=== PATIENT | male | born 1990 | race Caucasian/White ===

== ENCOUNTER 2019-10-03 19:20 | Emergency (ER) | payer OTHER ==
[~2019-10-03] VITALS: Ht 172.7 cm; Wt 86.4 kg
[2019-10-03] MEDS ORDERED: TraMADol HCL 50 MG TABLET PO ONE (20:00)
[2019-10-03] MEDS ORDERED: CefTRIAXone SODIUM 1 GM/VIAL IM ONE (20:00)
[2019-10-03] MEDS ORDERED: SULFAMETHOX/TRIMETH DS 800-160 MG/TABLET PO ONE (20:00)
[2019-10-03] MEDS ORDERED: LIDOCAINE/PF 1% 2 ML VIAL IM ONE (20:00)
[2019-10-03 20:38] VITALS: BP 117/68
== END 2019-10-03 21:02 | disposition home or self-care (01) ==
LOC: EMS 19:23
DX: L03.113 Cellulitis of right upper limb (principal); F11.90 Opioid use, unspecified, uncomplicated; Z86.19 Personal history of other infectious and parasitic diseases
CPT/HCPCS: 96372; 99283; J0696; J3490

== ENCOUNTER 2019-11-01 16:31 | Emergency (ER) | payer OTHER ==
[~2019-11-01] VITALS: Ht 170.2 cm; Wt 81.8 kg
[2019-11-01 16:38] VITALS: BP 132/76
== END 2019-11-01 18:39 | disposition left against medical advice (07) ==
LOC: EMS 16:33
DX: L08.9 Local infection of the skin and subcutaneous tissue, unspecified (principal); Z53.21 Procedure and treatment not carried out due to patient leaving prior to being seen by health care provider

== ENCOUNTER 2019-11-02 15:55 | Emergency (ER) | payer OTHER ==
[~2019-11-02] VITALS: Ht 170.2 cm; Wt 81.8 kg
[2019-11-02 16:05] VITALS: BP 145/87
== END 2019-11-02 19:37 | disposition left against medical advice (07) ==
LOC: EMS 15:59
DX: M79.89 Other specified soft tissue disorders (principal); Z53.21 Procedure and treatment not carried out due to patient leaving prior to being seen by health care provider

== ENCOUNTER 2020-02-23 17:47 | Emergency (ER) | payer OTHER ==
[~2020-02-23] VITALS: Ht 172.7 cm; Wt 88.6 kg
[2020-02-23 20:39] VITALS: BP 140/80
== END 2020-02-23 20:40 | disposition home or self-care (01) ==
LOC: EMS 17:47
DX: S02.2XXA Fracture of nasal bones, initial encounter for closed fracture (principal); S11.91XA Laceration without foreign body of unspecified part of neck, initial encounter; S09.90XA Unspecified injury of head, initial encounter; F17.210 Nicotine dependence, cigarettes, uncomplicated; F11.90 Opioid use, unspecified, uncomplicated; F12.90 Cannabis use, unspecified, uncomplicated; W19.XXXA Unspecified fall, initial encounter; Y93.89 Activity, other specified; Y92.89 Other specified places as the place of occurrence of the external cause; Y99.8 Other external cause status
CPT/HCPCS: 70450; 70486

== ENCOUNTER 2020-04-18 17:09 | Emergency (ER) | payer OTHER ==
[~2020-04-18] VITALS: Ht 172.7 cm; Wt 84.1 kg
[2020-04-18 20:22] VITALS: BP 137/76
== END 2020-04-18 20:28 | disposition home or self-care (01) ==
LOC: EMS 17:09
DX: L02.415 Cutaneous abscess of right lower limb (principal); F11.10 Opioid abuse, uncomplicated; F12.10 Cannabis abuse, uncomplicated; F17.210 Nicotine dependence, cigarettes, uncomplicated
CPT/HCPCS: 99406